=== PATIENT | female | born 1995 | race American Indian/Alaskan Native ===

== ENCOUNTER 2020-02-14 04:25 | Emergency (ER) | payer MEDICAID ==
[2020-02-14 05:34] LABS: Hematocrit 37.4 % (30.3-42.9); Hemoglobin 12.9 gm/dl (10.1-14.3); Mean Corpuscular HGB Conc 35 % (30-34); Mean Corpuscular Volume 92 fl (79-97); Platelet Count 323 K/mm3 (140-440); Red Blood Count 4.05 M/mm3 (3.65-5.03); Red Cell Distribution Width 13.1 % (13.2-15.2)
[2020-02-14 05:57] LABS: Alanine Aminotransferase 8 units/L (7-56); Albumin 4.7 g/dL (3.9-5); BUN/Creatinine Ratio 6; Blood Urea Nitrogen 5 mg/dL (7-17); Calcium 9.6 mg/dL (8.4-10.2); Hemolysis Index 13
[2020-02-14 06:33] LABS: Total Cells Counted 100
[2020-02-14 06:34] LABS: Basophils % (Manual) 0 % (0.0-1.8); Eosinophils % (Manual) 0 % (0.0-4.3); Platelet Estimate Consistent w Auto
--- NOTE | 2020-02-14 08:11 | Emergency Department Report ---
ED Abdominal Pain HPI - General Chief Complaint: Abdominal Pain Stated Complaint: STOMACH PAIN Time Seen by Provider: 02/14/20 08:06 Source: patient Mode of arrival: Ambulatory Limitations: No Limitations - History of Present Illness Initial Comments: 24-year-old Bangl[place] female resents emerged department complaining of a 1 week history of epigastric pain that radiates to the suprapubic region which is worsened over the past few days associated with one episode of vomiting today for which she has a strong suspicion of an STD and would like treatment. Reports no fevers chills or sweats no materia hematemesis no hematochezia. She reports no increased urinary urgency or decreased urinary production no flank pain. No no abdominal trauma no foreign travel no sick contacts no suspicion of food poisoning. The pain is becoming to get more intense suprapubic region and a pressure fullness type weight but she reports no change in her gas production MD Complaint: abdominal pain -: Gradual Location: epigastric Radiation: suprapubic Severity: mild, moderate Quality: aching, dull Consistency: constant - Related Data Previous Rx's Medication Instructions Recorded Last Taken Type Ferrous Sulfate [Feosol 325 MG tab] 325 mg PO BID #60 tablet 02/11/16 Unknown Rx HYDROcodone/APAP 5-325 [[place] 1 each PO Q6HR PRN #30 tablet 02/11/16 Unknown Rx 5/325] Ibuprofen [Motrin] 800 mg PO Q8HR PRN #30 tablet 02/11/16 Unknown Rx Vit Calc,Iron,Folic 1 each PO DAILY #30 tablet 02/11/16 Unknown Rx [ Vitamins] DOXYCYCLINE Hyclate [Vibramycin 100 mg PO Q12HR #28 capsule 02/14/20 Unknown Rx CAP] metroNIDAZOLE [Flagyl] 500 mg PO Q12HR #28 tab 02/14/20 Unknown Rx Allergies Allergy/AdvReac Type Severity Reaction Status Date / Time No Known Allergies Allergy Unverified 07/10/13 17:19 ED Review of Systems ROS: Stated complaint: STOMACH PAIN Other details as noted in HPI Comment: All other systems reviewed and negative ED Past Medical Hx - Past Medical History Previous Medical History?: Yes Hx Hypertension: No Hx Congestive Heart Failure: No Hx Diabetes: No Hx Deep Vein Thrombosis: No Hx Renal Disease: No Hx Sickle Cell Disease: No Hx Seizures: No Hx Asthma: No Hx COPD: No Hx HIV: No Additional medical history: heart murmur - Surgical History Past Surgical History?: No - Social History Smoking Status: Never Smoker Substance Use Type: None - Medications Home Medications: Home Medications Medication Instructions Recorded Confirmed Last Taken Type Ferrous Sulfate [Feosol 325 MG tab] 325 mg PO BID #60 tablet 02/11/16 Unknown Rx HYDROcodone/APAP 5-325 [[place] 1 each PO Q6HR PRN #30 tablet 02/11/16 Unknown Rx 5/325] Ibuprofen [Motrin] 800 mg PO Q8HR PRN #30 tablet 02/11/16 Unknown Rx Vit Calc,Iron,Folic 1 each PO DAILY #30 tablet 02/11/16 Unknown Rx [ Vitamins] DOXYCYCLINE Hyclate [Vibramycin 100 mg PO Q12HR #28 capsule 02/14/20 Unknown Rx CAP] metroNIDAZOLE [Flagyl] 500 mg PO Q12HR #28 tab 02/14/20 Unknown Rx ED Physical Exam - General Limitations: No Limitations General appearance: alert, in no apparent distress - Head Head exam: Present: atraumatic, normocephalic - Eye Eye exam: Present: normal appearance, PERRL, EOMI Pupils: Present: normal accommodation - ENT ENT exam: Present: normal exam, normal orophraynx, mucous membranes moist, TM's normal bilaterally - Neck Neck exam: Present: normal inspection, full ROM. Absent: tenderness - Respiratory Respiratory exam: Present: normal lung sounds bilaterally. Absent: respiratory distress, wheezes, rales, chest wall tenderness - Cardiovascular Cardiovascular Exam: Present: regular rate, normal rhythm. 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 Absent: rash ED Course Vital Signs 02/14/20 02/14/20 02/14/20 04:32 11:39 12:00 Temperature 98.0 F 98.8 F Pulse Rate 90 96 H Respiratory 20 16 18 Rate Blood Pressure 113/70 108/48 O2 Sat by Pulse 100 98 Oximetry ED Medical Decision Making - Lab Data Result diagrams: 02/14/20 05:09 02/14/20 05:09 Lab Results 02/14/20 02/14/20 02/14/20 Range/Units 05:09 05:09 05:09 WBC 14.8 H (4.5-11.0) K/mm3 RBC 4.05 (3.65-5.03) M/mm3 Hgb 12.9 (10.1-14.3) gm/dl Hct 37.4 (30.3-42.9) % MCV 92 (79-97) fl MCH 32 (28-32) pg MCHC 35 H (30-34) % RDW 13.1 L (13.2-15.2) % Plt Count 323 (140-440) K/mm3 Add Manual Diff Complete Total Counted 100 Seg Neutrophils % Private Eye Seg Neuts % (Manual) 89.0 H (40.0-70.0) % Band Neutrophils % 0 % Lymphocytes % (Manual) 9.0 L (13.4-35.0) % Reactive Lymphs % (Man) 0 % Monocytes % (Manual) 2.0 (0.0-7.3) % Eosinophils % (Manual) 0 (0.0-4.3) % Basophils % (Manual) 0 (0.0-1.8) % Metamyelocytes % 0 % Myelocytes % 0 % Promyelocytes % 0 % Blast Cells % 0 % Nucleated RBC % Not Reportable Seg Neutrophils # Man 13.2 H (1.8-7.7) K/mm3 Band Neutrophils # 0.0 K/mm3 Lymphocytes # (Manual) 1.3 (1.2-5.4) K/mm3 Abs React Lymphs (Man) 0.0 K/mm3 Monocytes # (Manual) 0.3 (0.0-0.8) K/mm3 Eosinophils # (Manual) 0.0 (0.0-0.4) K/mm3 Basophils # (Manual) 0.0 (0.0-0.1) K/mm3 Metamyelocytes # 0.0 K/mm3 Myelocytes # 0.0 K/mm3 Promyelocytes # 0.0 K/mm3 Blast Cells # 0.0 K/mm3 WBC Morphology Not Reportable Hypersegmented Neuts Not Reportable Hyposegmented Neuts Not Reportable Hypogranular Neuts Not Reportable Smudge Cells Not Reportable Toxic Granulation Not Reportable Toxic Vacuolation Not Reportable Dohle Bodies Not Reportable Pelger-Huet Anomaly Not Reportable Carlos Rods Not Reportable Platelet Estimate Consistent w auto Clumped Platelets Not Reportable Plt Clumps, EDTA Not Reportable Large Platelets Not Reportable Giant Platelets Not Reportable Platelet Satelliting Not Reportable Plt Morphology Comment Not Reportable RBC Morphology Not Reportable Dimorphic RBCs Not Reportable Polychromasia Not Reportable Hypochromasia Not Reportable Poikilocytosis Not Reportable Anisocytosis Not Reportable Microcytosis Not Reportable Macrocytosis Not Reportable Spherocytes Not Reportable Pappenheimer Bodies Not Reportable Sickle Cells Not Reportable Target Cells Not Reportable Tear Drop Cells Not Reportable Ovalocytes Not Reportable Helmet Cells Not Reportable [place] Bodies Not Reportable [place] Rings Not Reportable [place] Cells Not Reportable Bite Cells Not Reportable Crenated Cell Not Reportable Elliptocytes Not Reportable Acanthocytes (Spur) Not Reportable Rouleaux Not Reportable Hemoglobin C Crystals Not Reportable Schistocytes Not Reportable Malaria parasites Not Reportable Hilton Bodies Not Reportable Hem Pathologist Commnt No Sodium 138 (137-145) mmol/L Potassium 3.8 (3.6-5.0) mmol/L Chloride 99.4 (98-107) mmol/L Carbon Dioxide 19 L (22-30) mmol/L Anion Gap 23 mmol/L BUN 5 L (7-17) mg/dL Creatinine 0.8 (0.6-1.2) mg/dL Estimated GFR > 60 ml/min BUN/Creatinine Ratio 6 % Glucose 105 H (65-100) mg/dL Calcium 9.6 (8.4-10.2) mg/dL Total Bilirubin 0.80 (0.1-1.2) mg/dL AST 15 (5-40) units/L ALT 8 (7-56) units/L Alkaline Phosphatase 71 (35-129) units/L Total Protein 8.5 H (6.3-8.2) g/dL Albumin 4.7 (3.9-5) g/dL Albumin/Globulin Ratio 1.2 % Lipase 8 L (13-60) units/L HCG, Qual Negative (Negative) Urine Color (Yellow) Urine Turbidity (Clear) Urine pH (5.0-7.0) Ur Specific [place] (1.003-1.030) Urine Protein (Negative) mg/dL Urine Glucose (UA) (Negative) mg/dL Urine Ketones (Negative) mg/dL Urine Blood (Negative) Urine Nitrite (Negative) Urine Bilirubin (Negative) Urine Urobilinogen (<2.0) mg/dL Ur Leukocyte Esterase (Negative) Urine WBC (Auto) (0.0-6.0) /HPF Urine RBC (Auto) (0.0-6.0) /HPF U Epithel Cells (Auto) (0-13.0) /HPF Urine Mucus /HPF 02/13/20 Range/Units Unknown WBC (4.5-11.0) K/mm3 RBC (3.65-5.03) M/mm3 Hgb (10.1-14.3) gm/dl Hct (30.3-42.9) % MCV (79-97) fl MCH (28-32) pg MCHC (30-34) % RDW (13.2-15.2) % Plt Count (140-440) K/mm3 Add Manual Diff Total Counted Seg Neutrophils % Seg Neuts % (Manual) (40.0-70.0) % Band Neutrophils % % Lymphocytes % (Manual) (13.4-35.0) % Reactive Lymphs % (Man) % Monocytes % (Manual) (0.0-7.3) % Eosinophils % (Manual) (0.0-4.3) % Basophils % (Manual) (0.0-1.8) % Metamyelocytes % % Myelocytes % % Promyelocytes % % Blast Cells % % Nucleated RBC % Seg Neutrophils # Man (1.8-7.7) K/mm3 Band Neutrophils # K/mm3 Lymphocytes # (Manual) (1.2-5.4) K/mm3 Abs React Lymphs (Man) K/mm3 Monocytes # (Manual) (0.0-0.8) K/mm3 Eosinophils # (Manual) (0.0-0.4) K/mm3 Basophils # (Manual) (0.0-0.1) K/mm3 Metamyelocytes # K/mm3 Myelocytes # K/mm3 Promyelocytes # K/mm3 Blast Cells # K/mm3 WBC Morphology Hypersegmented Neuts Hyposegmented Neuts Hypogranular Neuts Smudge Cells Toxic Granulation Toxic Vacuolation Dohle Bodies Pelger-Huet Anomaly Carlos Rods Platelet Estimate Clumped Platelets Plt Clumps, EDTA Large Platelets Giant Platelets Platelet Satelliting Plt Morphology Comment RBC Morphology Dimorphic RBCs Polychromasia Hypochromasia Poikilocytosis Anisocytosis Microcytosis Macrocytosis Spherocytes Pappenheimer Bodies Sickle Cells Target Cells Tear Drop Cells Ovalocytes Helmet Cells [place]ces[place] Bodies [place] Rings [place] Cells Bite Cells Crenated Cell Elliptocytes Acanthocytes (Spur) Rouleaux Hemoglobin C Crystals Schistocytes Malaria parasites Hilton Bodies Hem Pathologist Commnt Sodium (137-145) mmol/L Potassium (3.6-5.0) mmol/L Chloride (98-107) mmol/L Carbon Dioxide (22-30) mmol/L Anion Gap mmol/L BUN (7-17) mg/dL Creatinine (0.6-1.2) mg/dL Estimated GFR ml/min BUN/Creatinine Ratio % Glucose (65-100) mg/dL Calcium (8.4-10.2) mg/dL Total Bilirubin (0.1-1.2) mg/dL AST (5-40) units/L ALT (7-56) units/L Alkaline Phosphatase (35-129) units/L Total Protein (6.3-8.2) g/dL Albumin (3.9-5) g/dL Albumin/Globulin Ratio % Lipase (13-60) units/L HCG, Qual (Negative) Urine Color Yellow (Yellow) Urine Turbidity Clear (Clear) Urine pH 6.0 (5.0-7.0) Ur Specific [place] 1.028 (1.003-1.030) Urine Protein 30 mg/dl (Negative) mg/dL Urine Glucose (UA) Neg (Negative) mg/dL Urine Ketones 80 (Negative) mg/dL Urine Blood Neg (Negative) Urine Nitrite Neg (Negative) Urine Bilirubin Neg (Negative) Urine Urobilinogen 2.0 (<2.0) mg/dL Ur Leukocyte Esterase Sm (Negative) Urine WBC (Auto) 12.0 H (0.0-6.0) /HPF Urine RBC (Auto) 4.0 (0.0-6.0) /HPF U Epithel Cells (Auto) 7.0 (0-13.0) /HPF Urine Mucus 3+ /HPF - Radiology Data [facility] [address] [place] [address] Cat Scan Report Signed Patient: JOSIANE CHARLTON MR#: [id number] : 1995 Acct:[id number] Age/Sex: 24 / F ADM Date: 02/14/20 Loc: ED Attending Dr: Ordering Physician: TESSIE HOUSTON Date of Service: 02/14/20 Procedure(s): CT abdomen pelvis w con Accession Number(s): [id number] cc: TESSIE HOUSTON CT abdomen pelvis w con INDICATION: Pelvic pain for 2 days. TECHNIQUE: All CT scans at this location are performed using the following dose modulation technique: Automated exposure control. Helical slices were obtained through the abdomen and pelvis. 100 cc Omnipaque 300 is administered. COMPARISON: None available. FINDINGS: Abdomen: Lung bases are clear. There is a hypodense lesion in the dome of the liver with peripheral nodular enhancement characteristic of a hemangioma. This measures 13 mm. There are 2 additional hypodensities in the liver measuring up to 5 mm which are too small to characterize but likely represent tiny cysts or hemangiomas. The spleen, pancreas, adrenal glands, and kidneys show no acute abnormality. The aorta is normal in diameter. There is no bowel obstruction. There is no free air. Pelvis: There is a small amount of free fluid in the pelvis. There are no walled off fluid collections. The free pelvic fluid measures above water density suggesting it may contain some blood. I suspect that this is related to a ruptured ovarian cyst. There is an irregular cyst in the left adnexa which measures 1.9 cm. There is a 1.8 cm right adnexal cyst. There is fluid in endometrial cavity. The appendix is not seen. On review of bone windows, no acute osseous abnormalities are seen. IMPRESSION: 1. There is no obstruction, or free air. There is a small amount of fluid in the pelvis which measures above water density suggesting blood products within it. There is an irregular shaped cyst in the left adnexa suggesting a ruptured cyst. Also included in the differential diagnosis for the appearance of the pelvis is PID. Signer Name: Obey Drew MD Signed: 02/14/2020 9:14 AM Workstation Name: [id number] Transcribed By: SS Dictated By: Obey Drew MD Electronically Authenticated By: Obey Drew MD Signed Date/Time: 02/14/20913 DD/ 5 TD/TT: - Medical Decision Making 24-year-old Bangl[place] female resents emergency department complaining of abdominal pain and pelvic pain which started to have elevated white count and positive trichomoniasis and bacterial vaginosis on her wet prep. Still pending her gonorrhea and Chlamydia evaluation but due to the symptoms and the suprapubic discomfort she displays along with a white risk factors have have suspicion for likely PID involvement. Will cover her with the Rocephin will incorporate Flagyl as well as doxycycline to be taken for period of 14 days have her to follow-up for reevaluation in 3 to 5 days she has been advised of when to return to the emergency department should she feel her condition is wor sening. She is tolerating oral remained afebrile during her hospital stay thus far. Critical care attestation.: If time is entered above; I have spent that time in minutes in the direct care of this critically ill patient, excluding procedure time. ED Disposition Clinical Impression: STD (female), Pelvic pain Disposition: - TO HOME OR SELFCARE Is pt being admited?: No Does the pt Need Aspirin: No Condition: Stable Instructions: Pelvic Inflammatory Disease (ED) Additional Instructions: Please be sure to take all other medications including in this regimen to eradicate sexual transmitted diseases well as to help the infection brewing in your pelvis. Also be sure to have your pelvis reevaluated in 48 hours to ensure that your symptoms are improving Prescriptions: metroNIDAZOLE [Flagyl] 500 mg PO Q12HR #28 tab DOXYCYCLINE Hyclate [Vibramycin CAP] 100 mg PO Q12HR #28 capsule Referrals: [facility] [Primary Care Provider] - 3-5 Days [facility] [Provider Group] - 3-5 Days MARCO A CRUZ MD [Staff Physician] - 3-5 Days
--- NOTE | 2020-02-14 09:19 | Cat Scan Report ---
CT abdomen pelvis w con INDICATION: Pelvic pain for 2 days. TECHNIQUE: All CT scans at this location are performed using the following dose modulation technique: Automated exposure control. Helical slices were obtained through the abdomen and pelvis. 100 cc Omnipaque 300 i s administered. COMPARISON: None available. FINDINGS: Abdomen: Lung bases are clear. There is a hypodense lesion in the dome of the liver with peripheral n odular enhancement characteristic of a hemangioma. This measures 13 mm. There are 2 additional hypode nsities in the liver measuring up to 5 mm which are too small to characterize but likely represent ti ny cysts or hemangiomas. The spleen, pancreas, adrenal glands, and kidneys show no acute abnormality. The aorta is normal in diameter. There is no bowel obstruction. There is no free air. Pelvis: There is a small amount of free fluid in the pelvis. There are no walled off fluid collection s. The free pelvic fluid measures above water density suggesting it may contain some blood. I suspect that this is related to a ruptured ovarian cyst. There is an irregular cyst in the left adnexa which measures 1.9 cm. There is a 1.8 cm right adnexal cyst. There is fluid in endometrial cavity. The appendix is not seen. On review of bone windows, no acute osseous abnormalities are seen. IMPRESSION: 1. There is no obstruction, or free air. There is a small amount of fluid in the pelvis which measures above water density suggesting blood pr oducts within it. There is an irregular shaped cyst in the left adnexa suggesting a ruptured cyst. Al so included in the differential diagnosis for the appearance of the pelvis is PID. Signer Name: Obey Drew MD Signed: 02/14/2020 9:14 AM Workstation Name: [id number]
[2020-02-14 09:53] LABS: Bilirubin,Urine NEG (Negative); Blood,Urine NEG (Negative); Color,Urine Yellow (Yellow); Mucus,Urine 3+ /HPF
[2020-02-14] MEDS ORDERED: KETOROLAC 30 MG/1 ML INJ ONE (11:43)
[2020-02-14] MEDS ORDERED: KETOROLAC 30 MG/1 ML INJ IM ONE (11:57)
[2020-02-14] MEDS ORDERED: AZITHROMYCIN 250 MG TAB PO STA (13:12)
[2020-02-14] MEDS ORDERED: LIDOCAINE-MPF (1%) 10 MG/1 ML VIAL 5 ML INFILTRATI ONE (13:12)
[2020-02-14 13:36] VITALS: BP 113/76
== END 2020-02-14 14:14 | disposition home or self-care (01) ==
LOC: ED 04:25
DX: R10.2 Pelvic and perineal pain (principal); A64 Unspecified sexually transmitted disease; Z79.1 Long term (current) use of non-steroidal anti-inflammatories (NSAID); Z79.899 Other long term (current) drug therapy
CPT/HCPCS: 36415; 74177; 80053; 81001; 83690; 84703; 85007; 85025; 87086; 87210; 87591; 96372; 99284; J0696; J1885; Q9967